=== PATIENT | female | born 1985 | race Hispanic/Latino ===

== ENCOUNTER 2017-10-02 19:21 | Emergency (ER) | payer MEDICAID, OTHER ==
[2017-10-02] MEDS ORDERED: BUPIVACAINE/PF 0.5% 30ML VIAL ONE (20:01)
== END 2017-10-02 20:38 | disposition home or self-care (01) ==
LOC: EDH 19:21
DX: S60.011A Contusion of right thumb without damage to nail, initial encounter (principal); W23.0XXA Caught, crushed, jammed, or pinched between moving objects, initial encounter; Y93.89 Activity, other specified; Y92.488 Other paved roadways as the place of occurrence of the external cause; Y99.8 Other external cause status
CPT/HCPCS: 11740; 73140; 99284; J3490